=== PATIENT | male | born 1965 | race Caucasian/White ===

== ENCOUNTER → 2021-02-23 14:53 | Outpatient (BNVA) | payer OTHER, SELFPAY | PROVIDERS: PCP Internal Medicine; Visit Provider Nurse Practitioner Family | DX: M47.816 Spondylosis without myelopathy or radiculopathy, lumbar region (principal); M43.02 Spondylolysis, cervical region; G89.29 Other chronic pain; M54.9 Dorsalgia, unspecified; M53.3 Sacrococcygeal disorders, not elsewhere classified | CPT/HCPCS: 99202 ==

== ENCOUNTER 2021-03-15 09:08 | Outpatient (REF) | payer OTHER, SELFPAY ==
--- NOTE | ~2021-03-15 | MR_ITS ---
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 Back pain. COMPARISON: None TECHNIQUE: MRI of the lumbar spine was obtained using routine sequences without contrast. FINDINGS: The lumbar vertebral bodies maintain normal heights. There is mild retrolisthesis of L4 on L5. Disc height loss is seen at L3-L4, L4-L5, and L5-S1. There is no bone marrow edema. The distal spinal cord appears normal. The conus medullaris terminates normally at the L1 level. The visualized paraspinal muscles and intra-abdominal and pelvic contents are within normal limits. SPINAL LEVELS: L1-L2: No posterior disc abnormality. No spinal canal or neural foraminal stenosis. L2-L3: No posterior disc abnormality. No spinal canal or neural foraminal stenosis. L3-L4: No posterior disc abnormality. No spinal canal or neural foraminal stenosis. L4-L5: Left subarticular extrusion resulting in significant compression of the traversing left L5 nerve root and in combination with disc bulging, ligamentum flavum infolding, and moderate facet arthropathy results in mild to moderate spinal canal stenosis. Mild to moderate left and mild right neural foraminal stenosis. L5-S1: Disc bulging with central protrusion and moderate facet arthropathy. No spinal canal stenosis. Moderate bilateral neural foraminal stenosis with mild compression of the bilateral exiting L5 nerve roots. MR/MR lumbar spine wo con IMPRESSION: At L4-L5 there is left subarticular extrusion resulting in compression of the traversing left L5 nerve root. Mild to moderate spinal canal stenosis and mild to moderate left and mild right neural foraminal stenosis. At L5-S1 there is moderate bilateral neural foraminal stenosis with mild compression of the exiting L5 nerve roots.
== END 2021-03-15 09:09 | disposition home or self-care (01) ==
LOC: HO.MRI 09:08
PROVIDERS: Visit Provider Nurse Practitioner Family
DX: M47.816 Spondylosis without myelopathy or radiculopathy, lumbar region (principal); M53.3 Sacrococcygeal disorders, not elsewhere classified; M54.9 Dorsalgia, unspecified; G89.29 Other chronic pain
CPT/HCPCS: 72148

== ENCOUNTER → 2021-03-23 10:17 | Outpatient (BNVA) | payer OTHER, SELFPAY | PROVIDERS: PCP Internal Medicine; Visit Provider Nurse Practitioner Family | DX: Z13.89 Encounter for screening for other disorder (principal) | CPT/HCPCS: 99212 ==

== ENCOUNTER 2021-04-25 06:12 | Outpatient (REF) | payer OTHER, SELFPAY ==
--- NOTE | ~2021-04-25 | FL_ITS ---
EXAMINATION: XR FLUOROSCOPY WITH IMAGES CLINICAL INFORMATION: Spinal stenosis lumbar region. COMPARISON: None. TECHNIQUE: Fluoroscopy performed by Stacie Jerez. Fluoroscopy time: 0.5 minutes DAP: 5.13 Gycm2 Images: 3 FINDINGS: There is needle positioned lateral to S1, L5 and inferior to L4 pedicles with contrast opacifying the soft tissues. No visible acute fracture or lytic process seen. FL/FL guidance in treatment room IMPRESSION: Fluoroscopy was provided to referring physician for pain management.
== END 2021-04-25 06:13 | disposition home or self-care (01) ==
LOC: HO.RADIR 06:12
PROVIDERS: Visit Provider Anesthesiology
DX: M48.061 Spinal stenosis, lumbar region without neurogenic claudication (principal); M47.816 Spondylosis without myelopathy or radiculopathy, lumbar region
CPT/HCPCS: 64483; 64484; J3300; Q9967

== ENCOUNTER → 2021-05-29 09:17 | Outpatient (BNVA) | payer OTHER, SELFPAY | PROVIDERS: PCP Internal Medicine; Visit Provider Nurse Practitioner Family | DX: M48.061 Spinal stenosis, lumbar region without neurogenic claudication (principal); M47.816 Spondylosis without myelopathy or radiculopathy, lumbar region; M43.02 Spondylolysis, cervical region; M54.9 Dorsalgia, unspecified; M53.3 Sacrococcygeal disorders, not elsewhere classified; G89.29 Other chronic pain | CPT/HCPCS: 99212 ==

== ENCOUNTER → 2021-09-11 10:55 | Outpatient (BNVA) | payer OTHER, SELFPAY | PROVIDERS: PCP Internal Medicine; Visit Provider Internal Medicine | DX: M47.816 Spondylosis without myelopathy or radiculopathy, lumbar region (principal); G89.29 Other chronic pain; M54.9 Dorsalgia, unspecified; M48.061 Spinal stenosis, lumbar region without neurogenic claudication | CPT/HCPCS: 99212 ==

== ENCOUNTER 2021-11-28 07:24 | Outpatient (REF) | payer OTHER, SELFPAY ==
--- NOTE | ~2021-11-28 | FL_ITS ---
EXAMINATION: XR FLUOROSCOPY WITH IMAGES CLINICAL INFORMATION: M47.816 - Spondylosis without myelopathy or radiculopathy, lumbar region COMPARISON: MR lumbar spine 03/15/2021 TECHNIQUE: Fluoroscopy performed by Dr. Michael Gallego. Fluoroscopy time: 1.0 minutes. Cumulative Dose: 39.2 mGy. DAP: 9.79 Gy-cm2. Images: 6. FINDINGS: There are spinal needles overlying the bilateral outer L3, L4, and L5 neural foramen. There is contrast seen in the respective nerve sheaths. Some early transforaminal epidural extension is suggested. No visible vascular communication. FL/FL guidance in treatment room IMPRESSION: Fluoroscopy for pain management procedures.
== END 2021-11-28 07:25 | disposition home or self-care (01) ==
LOC: HO.RADIR 07:24
PROVIDERS: Visit Provider Anesthesiology
DX: M47.816 Spondylosis without myelopathy or radiculopathy, lumbar region (principal); M54.9 Dorsalgia, unspecified; G89.29 Other chronic pain; M48.061 Spinal stenosis, lumbar region without neurogenic claudication
CPT/HCPCS: 64493

== ENCOUNTER → 2021-11-30 11:34 | Outpatient (BNVA) | payer OTHER, SELFPAY | PROVIDERS: Visit Provider Nurse Practitioner Family | DX: M47.816 Spondylosis without myelopathy or radiculopathy, lumbar region (principal); M54.9 Dorsalgia, unspecified; G89.29 Other chronic pain; M48.061 Spinal stenosis, lumbar region without neurogenic claudication | CPT/HCPCS: Q3014 ==

== ENCOUNTER → 2022-03-08 08:24 | Outpatient (BNVA) | payer OTHER, SELFPAY | PROVIDERS: Visit Provider Nurse Practitioner Family | DX: M48.061 Spinal stenosis, lumbar region without neurogenic claudication (principal); M47.816 Spondylosis without myelopathy or radiculopathy, lumbar region; M51.36 Other intervertebral disc degeneration, lumbar region | CPT/HCPCS: Q3014 ==

== ENCOUNTER → 2022-07-23 08:45 | Outpatient (BNVA) | payer OTHER, SELFPAY | PROVIDERS: Visit Provider Nurse Practitioner Family | DX: M47.816 Spondylosis without myelopathy or radiculopathy, lumbar region (principal); M54.9 Dorsalgia, unspecified; M51.36 Other intervertebral disc degeneration, lumbar region; M48.061 Spinal stenosis, lumbar region without neurogenic claudication; G89.29 Other chronic pain | CPT/HCPCS: Q3014 ==

== ENCOUNTER 2022-08-07 06:04 | Outpatient (REF) | payer OTHER, SELFPAY ==
--- NOTE | ~2022-08-07 | FL_ITS ---
EXAMINATION: XR FLUOROSCOPY WITH IMAGES CLINICAL INFORMATION: Other intervertebral disc degeneration, lumbar region. L4-L5 discogram. COMPARISON: None available. TECHNIQUE: Fluoroscopy Supervised By: Dr. Michael Gallego Fluoroscopy Time: 0.7 minutes Cumulative Dose: 66.4 mGy DAP: 14 Gycm2 Images: 6 FINDINGS: There is a needle positioned in the L4-L5 disc level with contrast opacifying the disc level. FL/FL guidance in treatment room IMPRESSION: Fluoroscopic guidance was provided to the referring physician for pain management.
== END 2022-08-07 06:05 | disposition home or self-care (01) ==
LOC: CF 06:04
PROVIDERS: Visit Provider Anesthesiology
DX: M48.061 Spinal stenosis, lumbar region without neurogenic claudication (principal); M51.36 Other intervertebral disc degeneration, lumbar region; M47.816 Spondylosis without myelopathy or radiculopathy, lumbar region; G89.29 Other chronic pain
CPT/HCPCS: 62290; 72295

== ENCOUNTER → 2022-08-09 08:56 | Outpatient (BNVA) | payer OTHER, SELFPAY | PROVIDERS: PCP Internal Medicine; Visit Provider Anesthesiology | DX: M47.816 Spondylosis without myelopathy or radiculopathy, lumbar region (principal); M54.9 Dorsalgia, unspecified; M48.061 Spinal stenosis, lumbar region without neurogenic claudication; M51.36 Other intervertebral disc degeneration, lumbar region; G89.29 Other chronic pain | CPT/HCPCS: Q3014 ==

== ENCOUNTER 2023-03-12 07:11 | Outpatient (REF) | payer OTHER, SELFPAY | END 2023-03-12 07:12 | disposition home or self-care (01) | LOC: HO.MRI 07:11 | PROVIDERS: Visit Provider Physician Assistant | DX: Z13.89 Encounter for screening for other disorder (principal) ==

== ENCOUNTER 2025-02-24 09:20 | Outpatient (AMB) | payer OTHER, SELFPAY ==
--- NOTE | 2025-02-24 09:28 | MHC.OFFVIS ---
Intake Visit Reasons: NVP Luana Ref Chronic Intake Note: Patient is a 59 year old male here for neck pain and tailbone pain back in 2017 pt fell about a mouth after the injury exerting a lot of pressure ice and heat dose not help injection in the past heat tharepy nouthing helped Allergies No Known Allergies Allergy (Verified 02/24/25 09:42) PFSH Medical History Anxiety and depression Chronic pain of both knees History of DVT (deep vein thrombosis) Hyperlipidemia Hypertension Morbid obesity with BMI of 40.0-44.9, adult No history of alcohol use Non-smoker Surgical History H/O left knee surgery History of shoulder surgery Social History (Updated 02/22/25 @ 11:52 by Billie Green MA) Alcohol intake: current Alcohol intake frequency: does not drink Patient Tobacco Use Status: Never used Tobacco Coding
--- NOTE | 2025-02-24 09:29 | MHC.OFFVIS ---
Intake Visit Reasons: NVP Luana Ref Chronic Allergies No Known Allergies Allergy (Verified 02/24/25 09:42) HPI Comments Details: Mr. Sarah is a 59-year-old male seen in consultation today for chronic neck pain. Patient reports most of his neck pain is central and radiates primarily to his right upper extremity. Patient has seen pain management and did not respond well to epidural injection. Patient is currently not interested in any sort of injections. He is using Belbuca for chronic pain with mild relief. Patient also has gabapentin, amitriptyline, meloxicam for pain. He denies any recent trauma, incontinence or saddle anesthesia. We do have MRI of his lumbar spine reported below. The symptoms are worse with activity and improved with rest. Patient had x-rays ordered by his primary care physician but he did not obtain them. I reviewed the referring provider's no prior to consultation. PFSH Medical History Anxiety and depression Chronic pain of both knees History of DVT (deep vein thrombosis) Hyperlipidemia Hypertension Morbid obesity with BMI of 40.0-44.9, adult No history of alcohol use Non-smoker Surgical History H/O left knee surgery History of shoulder surgery Social History (Updated 02/22/25 @ 11:52 by Billie Green MA) Alcohol intake: current Alcohol intake frequency: does not drink Patient Tobacco Use Status: Never used Tobacco Review of Systems Narrative Neck pain, no incontinence, saddle anesthesia or urinary retention. Physical Exam Exam Exam: Cervical Spine: Examination of the cervical spine, there is no visible swelling or deformity. He is tender to the right upper trapezius. He is otherwise nontender. Full range of motion of the cervical spine. Special Tests: Axial Compression test: Negative Spurlings test: Negative Lhermitte's sign is Negative Upper Extremities: Full range of motion bilateral upper extremities. Equal application integration specialist strength bilaterally. Neuro: Sensation: Intact to upper extremities bilateral to light touch Strength C5 (Elbow Flexion): 5/5 on the left and 5/5 on the right. C6 (Elbow Ext): 5/5 on the left and 5/5 on the right. C7 (Elbow Ext): 5/5 on the left and 5/5 on the right. C8 (Finger Flex): 5/5 on the left and 5/5 on the right. T1 (Finger Abd/Add): 5/5 on the left and 5/5 on the right. DTR: C5 (Biceps): Left 2 Right 2 C6 (Brachioradialis): Left 1 Right 1 C7 (Triceps): Left 2 Right 2 Pimentel sign: Negative No pathologic clonus. No involuntary movement. Assessment & Plan Assessment & Plan (1) Cervical radiculopathy: Code(s): M54.12 - Radiculopathy, cervical region Category: Medical (2) Lumbar radiculopathy: Code(s): M54.16 - Radiculopathy, lumbar region Category: Medical Plan Mr. Sarah is a 59-year-old male seen in consultation today for acute on chronic neck pain. Patient declined physical therapy. Today we reviewed 5 different exercises that help perform every other day. I recommend he obtain the x-rays ordered by his primary care physician. He will continue his pain medications as prescribed. I recommend follow up in 6 weeks, he has not markedly improved we will consider MRI of the cervical spine. Patient is currently not interested in any sort of epidural injection. We are extremely limited as to what we can do to help him. We discussed the benefits of proper nutrition and exercise to maintain a healthy body weight to improve longevity and function. We also discussed the benefits of proper lifting techniques, core strengthening and proper posture. Thank you for allowing me to participate in the care of your patient. Coding Level of Care Code Tele New Pt Level 4 (44686) Diagnoses Cervical radiculopathy M54.12 Lumbar radiculopathy M54.16
== END 2025-02-24 10:09 | disposition home or self-care (01) ==
LOC: HO.HPHYS 09:20
PROVIDERS: PCP Internal Medicine; Visit Provider Physician Assistant
DX: M54.12 Radiculopathy, cervical region (principal); M54.16 Radiculopathy, lumbar region
CPT/HCPCS: 99204

== ENCOUNTER → 2025-02-24 09:20 | Outpatient (BNVA) | payer OTHER, SELFPAY | PROVIDERS: PCP Internal Medicine; Visit Provider Physician Assistant | DX: M54.12 Radiculopathy, cervical region (principal); M54.16 Radiculopathy, lumbar region | CPT/HCPCS: 99202 ==